=== PATIENT | female | born 1970 | race Caucasian/White ===

== ENCOUNTER 2023-02-08 01:06 | Emergency (ER) | payer MEDICAID ==
[2023-02-08] MEDS ORDERED: Ondansetron 4 MG/2 ML SDV IVPUSH ONE (01:25)
[2023-02-08] MEDS ORDERED: Ketorolac 30 MG/ML SDV IVPUSH ONE (01:25)
[2023-02-08] MEDS ORDERED: Sodium Chloride 0.9% 10 ML Syringe FLUSH PRN (01:25)
[2023-02-08] MEDS ORDERED: Sodium Chloride 0.9% 2.5 ML Syringe FLUSH PRN (01:25)
[2023-02-08] MEDS ORDERED: fentaNYL 50 MCG/ML SDV IVPUSH ONE ×2 (02:01→02:49)
[2023-02-08 02:02] LABS: CARBON DIOXIDE,CO2 23.1 mmol/L (21.0-32.0); POTASSIUM,K 4.4 mmol/L (3.5-5.1)
[2023-02-08] MEDS ORDERED: Acetaminophen 1,000 MG in Premix Bag 1 BAG IV ONE (03:10)
[2023-02-08] MEDS ORDERED: HYDROmorphone 1 MG/ML Syringe IVPUSH ONE ×2 (03:28→04:17)
== END 2023-02-08 05:00 | disposition home or self-care (01) ==
LOC: MW.ED 01:06
DX: N23 Unspecified renal colic (principal); Z88.5 Allergy status to narcotic agent; Z88.8 Allergy status to other drugs, medicaments and biological substances
CPT/HCPCS: 36415; 74176; 80053; 81001; 85025; 87086; 96365; 96375; 96376; 99284; J0131; J1170; J1885; J2405; J3010; J3490; 87088; 87186; 99283

== ENCOUNTER 2023-02-09 19:49 | Emergency (ER) | payer MEDICAID | END 2023-02-09 20:45 | disposition left against medical advice (07) | LOC: MW.ED 19:49 | DX: Z53.21 Procedure and treatment not carried out due to patient leaving prior to being seen by health care provider (principal) ==

== ENCOUNTER 2023-02-22 12:01 | Emergency (ER) | payer MEDICAID ==
[2023-02-22] MEDS ORDERED: Sodium Chloride 0.9% 10 ML Syringe FLUSH PRN (12:33)
[2023-02-22] MEDS ORDERED: Sodium Chloride 0.9% 2.5 ML Syringe FLUSH PRN (12:33)
[2023-02-22] MEDS ORDERED: HYDROmorphone 2 MG/ML Syringe IVPUSH ONE (12:34)
[2023-02-22] MEDS ORDERED: Sodium Chloride 0.9% 500 ML IV SCH (12:45)
[2023-02-22] MEDS ORDERED: Ondansetron 4 MG/2 ML SDV IVPUSH STA (13:46)
[2023-02-22] MEDS ORDERED: Piperacillin/Tazobactam 3.375 GM in Sodium Chloride 0.9% 100 ML IV ONE (15:07)
== END 2023-02-22 16:34 ==
LOC: MW.ED 12:01
DX: N20.0 Calculus of kidney (principal); N12 Tubulo-interstitial nephritis, not specified as acute or chronic; Z88.5 Allergy status to narcotic agent; Z88.6 Allergy status to analgesic agent; Z72.0 Tobacco use
CPT/HCPCS: 36415; 74176; 80053; 81001; 83605; 85025; 87040; 96365; 96375; 99285; J1170; J2405; J2543; J3490; J7040; 99284

== ENCOUNTER 2023-05-30 14:51 | Emergency (ER) | payer MEDICAID ==
[2023-05-30] MEDS ORDERED: oxyCODONE 5 MG Tab PO STA (16:50)
== END 2023-05-30 16:53 | disposition home or self-care (01) ==
LOC: MW.ED 14:51
DX: M25.512 Pain in left shoulder (principal); J45.909 Unspecified asthma, uncomplicated; Z88.5 Allergy status to narcotic agent; Z88.6 Allergy status to analgesic agent; X50.0XXA Overexertion from strenuous movement or load, initial encounter
CPT/HCPCS: 99283; A9270

== ENCOUNTER 2024-09-03 15:01 | Emergency (ER) | payer SELFPAY ==
[2024-09-03 16:04] LABS: BASOPHILS ABSOLUTE AUTO 0.08 K/uL (0.00-0.20); EOSINOPHILS PERCENT AUTO 2.5 % (0.0-6.0); HEMATOCRIT 45.9 % (37.0-47.0); HEMOGLOBIN 15.1 g/dL (12.0-16.0); IMMATURE GRAN ABSOLUTE AUTO 0.09 K/uL (0.00-0.05); IMMATURE GRAN PERCENT AUTO 1.1 % (0.0-0.4); LYMPHOCYTES ABSOLUTE AUTO 2.26 K/uL (1.00-4.80); LYMPHOCYTES PERCENT AUTO 28.4 % (24.0-44.0); MEAN CORPUSCULAR HEMOGLOBIN 32.6 pg (28.0-32.0); MEAN CORPUSCULAR HGB CONC 32.9 g/dL (32.0-36.0); MEAN CORPUSCULAR VOLUME 99.1 fL (83.0-99.0); MEAN PLATELET VOLUME 9.8 fL (9.4-12.3); MONOCYTES ABSOLUTE AUTO 1.35 K/uL (0.00-0.80); MONOCYTES PERCENT AUTO 16.9 % (0.0-8.0); NEUTROPHILS ABSOLUTE AUTO 3.99 K/uL (1.80-7.70); NEUTROPHILS PERCENT AUTO 50.1 % (41.0-71.0); PLATELET COUNT,PLT 237 K/uL (150-400); RED BLOOD CELL COUNT 4.63 M/uL (4.10-5.30); WHITE BLOOD CELL COUNT,WBC 7.97 K/uL (3.9-11.3)
[2024-09-03 16:32] LABS: A/G RATIO 0.8 (0.9-1.6); ALBUMIN 3.2 g/dL (3.4-5.0); BILIRUBIN TOTAL 0.3 mg/dL (0.2-1.0); CALCIUM 8.6 mg/dL (8.5-10.1); CARBON DIOXIDE,CO2 23.8 mmol/L (21.0-32.0); EST CRCL DRUG DOSING (CG) 45.66 mL/min; POTASSIUM,K 3.5 mmol/L (3.5-5.1); PROTEIN TOTAL,TP 7.3 g/dL (6.4-8.2)
[2024-09-03] MEDS: Nirmatrelvir/Ritonavir 300 MG/100 MG Dosepak PO SCH (17:23)
== END 2024-09-03 17:27 | disposition home or self-care (01) ==
LOC: MW.ED 15:01
DX: U07.1 COVID-19 (principal); F17.210 Nicotine dependence, cigarettes, uncomplicated; Z88.5 Allergy status to narcotic agent; Z88.6 Allergy status to analgesic agent; Z75.8 Other problems related to medical facilities and other health care
CPT/HCPCS: 36415; 71045; 80053; 85025; 87428; 93005; 99285; A9270

== ENCOUNTER 2024-09-19 19:45 | Emergency (ER) | payer SELFPAY ==
[2024-09-19] MEDS: Acetaminophen 500 MG Tab PO ONE (21:34)
== END 2024-09-19 22:23 | disposition home or self-care (01) ==
LOC: MW.ED 19:45
DX: M25.532 Pain in left wrist (principal); Z75.8 Other problems related to medical facilities and other health care; J45.909 Unspecified asthma, uncomplicated; Z88.5 Allergy status to narcotic agent
CPT/HCPCS: 73060; 73070; 73110; 99283; A9270

== ENCOUNTER 2024-11-09 02:24 | Emergency (ER) | payer MEDICAID ==
[2024-11-09] MEDS: Bupivacaine 0.5% 10 ML SDV INJECT ONE (02:53)
[2024-11-09] MEDS: Lidocaine 2% Viscous Solution 15 ML UD PO PRN (02:57)
[2024-11-09] MEDS: Benzocaine 20% Topical Spray UD MUCMEM ONE (02:57)
== END 2024-11-09 04:20 | disposition home or self-care (01) ==
LOC: MW.ED 02:24
DX: K08.89 Other specified disorders of teeth and supporting structures (principal); J45.909 Unspecified asthma, uncomplicated; F17.210 Nicotine dependence, cigarettes, uncomplicated; Z88.5 Allergy status to narcotic agent; Z88.8 Allergy status to other drugs, medicaments and biological substances
CPT/HCPCS: 64400; 99282; A9270; J0665

== ENCOUNTER 2024-12-17 06:24 | Emergency (ER) | payer MEDICAID ==
[2024-12-17] MEDS: Famotidine 20 MG Tab PO ONE (06:49)
[2024-12-17] MEDS: Acetaminophen 500 MG Tab PO ONE (06:49)
[2024-12-17] MEDS: Albuterol/Ipratropium 3.0-0.5 MG/3 ML Neb Soln NEB ONE (06:49)
[2024-12-17] MEDS: Ibuprofen 600 MG Tab PO ONE (06:49)
[2024-12-17] MEDS ORDERED: Azithromycin 500 MG Vial IV ONE (08:02)
[2024-12-17] MEDS ORDERED: Azithromycin 500 MG in Sodium Chloride 0.9% 250 ML IV ONE (08:05)
[2024-12-17] MEDS: Azithromycin 250 MG Tab PO ONE (08:09)
== END 2024-12-17 08:14 | disposition home or self-care (01) ==
LOC: MW.ED 06:24
DX: R05.9 Cough, unspecified (principal); M79.10 Myalgia, unspecified site; J45.909 Unspecified asthma, uncomplicated; Z88.5 Allergy status to narcotic agent; Z88.8 Allergy status to other drugs, medicaments and biological substances; F17.210 Nicotine dependence, cigarettes, uncomplicated
CPT/HCPCS: 71046; 87428; 99285; A9270; 99283; J7620-GY

== ENCOUNTER 2025-06-17 13:18 | Emergency (ER) | payer MEDICAID | END 2025-06-17 14:32 | LOC: MW.ED 13:18 | DX: F17.200 Nicotine dependence, unspecified, uncomplicated; Z88.0 Allergy status to penicillin; Z88.5 Allergy status to narcotic agent; Z88.8 Allergy status to other drugs, medicaments and biological substances | CPT/HCPCS: 82947; 99283 ==

== ENCOUNTER 2025-06-23 23:00 | Emergency (ER) | payer MEDICAID ==
[2025-06-23 23:24] LABS: BASOPHILS ABSOLUTE AUTO 0.09 K/uL (0.00-0.20); BASOPHILS PERCENT AUTO 0.8 % (0.0-1.0); EOSINOPHILS ABSOLUTE AUTO 0.70 K/uL (0.00-0.45); EOSINOPHILS PERCENT AUTO 6.3 % (0.0-6.0); IMMATURE GRAN ABSOLUTE AUTO 0.08 K/uL (0.00-0.05); IMMATURE GRAN PERCENT AUTO 0.7 % (0.0-0.4); LYMPHOCYTES ABSOLUTE AUTO 2.62 K/uL (1.00-4.80); LYMPHOCYTES PERCENT AUTO 23.7 % (24.0-44.0); MEAN PLATELET VOLUME 9.5 fL (9.4-12.3); MONOCYTES ABSOLUTE AUTO 1.35 K/uL (0.00-0.80); MONOCYTES PERCENT AUTO 12.2 % (0.0-8.0); NEUTROPHILS ABSOLUTE AUTO 6.20 K/uL (1.80-7.70); NEUTROPHILS PERCENT AUTO 56.3 % (41.0-71.0); NRBC ABSOLUTE 0.00 K/uL (0.00-0.02); NRBC PERCENT 0.0 /100WBC (0.0-0.2); PLATELET COUNT,PLT 254 K/uL (150-400); RED BLOOD CELL COUNT 4.21 M/uL (4.10-5.30); WHITE BLOOD CELL COUNT,WBC 11.04 K/uL (3.9-11.3)
[2025-06-23 23:44] LABS: A/G RATIO 0.9 (0.9-1.6); ALANINE AMINOTRANSFERASE,ALT 41.0 IU/L (14-63); ASPARTATE AMNIOTRANSFERASE,AST 26.0 IU/L (15-37); BILIRUBIN TOTAL 0.2 mg/dL (0.2-1.0); BLOOD UREA NITROGEN,BUN 14.0 mg/dL (7.0-18.0); CARBON DIOXIDE,CO2 24.1 mmol/L (21.0-32.0); CHLORIDE,CL 107.0 mmol/L (98-107); CREATININE 0.9 mg/dL (0.6-1.0); EST CRCL DRUG DOSING (CG) 52.67 mL/min; ETHANOL BLOOD MEDICAL 123.0 mg/dL; GLUCOSE RANDOM 112.0 mg/dL (74-106); POTASSIUM,K 3.7 mmol/L (3.5-5.1); PRO B-TYPE NATRIUR PEPT,BNPPRO 18.0 pg/mL (0-125); PROTEIN TOTAL,TP 6.9 g/dL (6.4-8.2); SODIUM,NA 144.0 mmol/L (136-145)
[2025-06-23 23:45] LABS: ESTIMATED GFR 75.0 mL/min (>60)
[2025-06-23] MEDS: Iopamidol 755 MG/ML 500 ML Multipack Bottle IVPUSH ONE (23:56)
[2025-06-24 00:55] LABS: APPEARANCE,URINE CLEAR; GLUCOSE,URINE NEGATIVE (NEGATIVE); OCCULT BLOOD,URINE TRACE-LYSED (NEGATIVE)
[2025-06-24 01:05] LABS: AMPHETAMINES SCREEN, URINE PRESUMPTIVE POSITIVE (CUTOFF=500); BUPRENORPHINE SCREEN,URINE NEGATIVE (CUTOFF=10); METHADONE SCREEN, URINE NEGATIVE (CUTOFF=200); METHAMPHETAMINES SCREEN, URINE PRESUMPTIVE POSITIVE (CUTOFF=500); OXYCODONE SCREEN,URINE NEGATIVE (CUT0FF=100); PCP SCREEN,URINE NEGATIVE (CUTOFF=25); THC SCREEN,URINE 20 NG/ML PRESUMPTIVE POSITIVE (CUTOFF=50)
[2025-06-24 01:19] LABS: EPITHELIAL CELLS,URINE OCCASIONAL (NONE-FEW)
== END 2025-06-24 01:52 | disposition home or self-care (01) ==
LOC: MW.ED 23:00
DX: F15.10 Other stimulant abuse, uncomplicated (principal); F12.10 Cannabis abuse, uncomplicated; F10.120 Alcohol abuse with intoxication, uncomplicated; J45.909 Unspecified asthma, uncomplicated; F17.210 Nicotine dependence, cigarettes, uncomplicated; Z88.0 Allergy status to penicillin; Z88.5 Allergy status to narcotic agent; Z88.8 Allergy status to other drugs, medicaments and biological substances; Z79.899 Other long term (current) drug therapy; Y90.9 Presence of alcohol in blood, level not specified
CPT/HCPCS: 36415; 71045; 71275; 74177; 80053; 80305; 80307; 81001; 83690; 83880; 84484; 85025; 93005; 99285; Q9967; 93010; 99284

== ENCOUNTER 2025-07-13 16:02 | Emergency (ER) | payer MEDICAID ==
[2025-07-13] MEDS ORDERED: Sodium Chloride 0.9% 10 ML Syringe FLUSH PRN (16:13)
[2025-07-13] MEDS ORDERED: Sodium Chloride 0.9% 2.5 ML Syringe FLUSH PRN (16:13)
[2025-07-13] MEDS: droPERidol 2.5 MG/ML SDV IVPUSH ONE (16:25)
[2025-07-13 16:33] LABS: BASOPHILS ABSOLUTE AUTO 0.07 K/uL (0.00-0.20); BASOPHILS PERCENT AUTO 0.7 % (0.0-1.0); EOSINOPHILS ABSOLUTE AUTO 0.48 K/uL (0.00-0.45); EOSINOPHILS PERCENT AUTO 4.9 % (0.0-6.0); IMMATURE GRAN ABSOLUTE AUTO 0.09 K/uL (0.00-0.05); IMMATURE GRAN PERCENT AUTO 0.9 % (0.0-0.4); LYMPHOCYTES ABSOLUTE AUTO 3.05 K/uL (1.00-4.80); LYMPHOCYTES PERCENT AUTO 30.8 % (24.0-44.0); MEAN PLATELET VOLUME 9.8 fL (9.4-12.3); MONOCYTES ABSOLUTE AUTO 0.84 K/uL (0.00-0.80); MONOCYTES PERCENT AUTO 8.5 % (0.0-8.0); NEUTROPHILS ABSOLUTE AUTO 5.36 K/uL (1.80-7.70); NEUTROPHILS PERCENT AUTO 54.2 % (41.0-71.0); NRBC ABSOLUTE 0.00 K/uL (0.00-0.02); NRBC PERCENT 0.0 /100WBC (0.0-0.2); PLATELET COUNT,PLT 291 K/uL (150-400); RED BLOOD CELL COUNT 4.41 M/uL (4.10-5.30); WHITE BLOOD CELL COUNT,WBC 9.89 K/uL (3.9-11.3)
[2025-07-13 16:34] LABS: APPEARANCE,URINE CLEAR; GLUCOSE,URINE NEGATIVE (NEGATIVE); OCCULT BLOOD,URINE TRACE-INTACT (NEGATIVE)
[2025-07-13 16:42] LABS: EPITHELIAL CELLS,URINE FEW (NONE-FEW)
[2025-07-13 16:54] LABS: A/G RATIO 0.8 (0.9-1.6); ALANINE AMINOTRANSFERASE,ALT 31.0 IU/L (14-63); ASPARTATE AMNIOTRANSFERASE,AST 22.0 IU/L (15-37); BILIRUBIN TOTAL 0.2 mg/dL (0.2-1.0); BLOOD UREA NITROGEN,BUN 14.0 mg/dL (7.0-18.0); CARBON DIOXIDE,CO2 24.4 mmol/L (21.0-32.0); CHLORIDE,CL 108.0 mmol/L (98-107); CREATININE 0.8 mg/dL (0.6-1.0); EST CRCL DRUG DOSING (CG) 59.25 mL/min; GLUCOSE RANDOM 99.0 mg/dL (74-106); POTASSIUM,K 3.9 mmol/L (3.5-5.1); PROTEIN TOTAL,TP 6.9 g/dL (6.4-8.2); SODIUM,NA 142.0 mmol/L (136-145)
[2025-07-13 17:04] LABS: ESTIMATED GFR 86.0 mL/min (>60)
== END 2025-07-13 17:49 | disposition home or self-care (01) ==
LOC: MW.ED 16:02
DX: R10.9 Unspecified abdominal pain (principal); J45.909 Unspecified asthma, uncomplicated; Z88.0 Allergy status to penicillin; Z88.8 Allergy status to other drugs, medicaments and biological substances; Z79.899 Other long term (current) drug therapy
CPT/HCPCS: 36415; 74176; 80053; 81001; 83605; 83690; 85025; 96361; 96374; 96375; 99284; J1790; J7030; 99283; J1171

== ENCOUNTER 2025-09-18 05:14 | Emergency (ER) | payer MEDICAID ==
[2025-09-18] MEDS ORDERED: Sodium Chloride 0.9% 10 ML Syringe FLUSH PRN (05:25)
[2025-09-18] MEDS ORDERED: Sodium Chloride 0.9% 2.5 ML Syringe FLUSH PRN (05:25)
[2025-09-18] MEDS: cefTRIAXone 1 GM in Water For Injection, Sterile 10 ML IVPUSH ONE (05:41)
[2025-09-18] MEDS: metroNIDAZOLE/Normal Saline 500 MG in Premix Bag 1 BAG IV ONE (05:41)
[2025-09-18 05:42] LABS: BASOPHILS ABSOLUTE AUTO 0.08 K/uL (0.00-0.20); BASOPHILS PERCENT AUTO 0.7 % (0.0-1.0); EOSINOPHILS ABSOLUTE AUTO 0.29 K/uL (0.00-0.45); EOSINOPHILS PERCENT AUTO 2.4 % (0.0-6.0); IMMATURE GRAN ABSOLUTE AUTO 0.07 K/uL (0.00-0.05); IMMATURE GRAN PERCENT AUTO 0.6 % (0.0-0.4); LYMPHOCYTES ABSOLUTE AUTO 3.50 K/uL (1.00-4.80); LYMPHOCYTES PERCENT AUTO 29.2 % (24.0-44.0); MEAN PLATELET VOLUME 9.6 fL (9.4-12.3); MONOCYTES ABSOLUTE AUTO 1.05 K/uL (0.00-0.80); MONOCYTES PERCENT AUTO 8.8 % (0.0-8.0); NEUTROPHILS ABSOLUTE AUTO 6.98 K/uL (1.80-7.70); NEUTROPHILS PERCENT AUTO 58.3 % (41.0-71.0); NRBC ABSOLUTE 0.00 K/uL (0.00-0.02); NRBC PERCENT 0.0 /100WBC (0.0-0.2); PLATELET COUNT,PLT 267 K/uL (150-400); RED BLOOD CELL COUNT 4.70 M/uL (4.10-5.30); WHITE BLOOD CELL COUNT,WBC 11.97 K/uL (3.9-11.3)
[2025-09-18] MEDS: Ondansetron 4 MG/2 ML SDV IVPUSH ONE (05:47)
[2025-09-18 06:02] LABS: BLOOD UREA NITROGEN,BUN 10 mg/dL (7.0-18.0); CARBON DIOXIDE,CO2 30.2 mmol/L (21.0-32.0); CHLORIDE,CL 103 mmol/L (98-107); CREATININE 0.9 mg/dL (0.6-1.0); GLUCOSE RANDOM 113 mg/dL (74-106); POTASSIUM,K 4.0 mmol/L (3.5-5.1); SODIUM,NA 139 mmol/L (136-145)
[2025-09-18 06:04] LABS: ESTIMATED GFR 75 mL/min (>60)
[2025-09-18 06:11] LABS: LACTIC ACID 1.3 mmol/L (0.4-2.0)
[2025-09-18] MEDS ORDERED: Naloxone 0.4 MG/ML SDV IVPUSH PRN (07:41)
[2025-09-18] MEDS: fentaNYL 50 MCG/ML SDV IVPUSH ONE ×2 (07:49→10:42)
[2025-09-18] MEDS: Iopamidol 755 MG/ML 500 ML Multipack Bottle IVPUSH STA (08:10)
[2025-09-18] MEDS: Clindamycin Phosphate in D5W 900 MG in Premix Bag 1 BAG IV ONE (09:13)
== END 2025-09-18 10:50 ==
LOC: MW.ED 05:14
DX: S61.452A Open bite of left hand, initial encounter (principal); F17.210 Nicotine dependence, cigarettes, uncomplicated; Z88.0 Allergy status to penicillin; Z88.5 Allergy status to narcotic agent; W55.01XA Bitten by cat, initial encounter; Y93.89 Activity, other specified
CPT/HCPCS: 36415; 73130-26-LT; 73130-LT; 73201-26-LT; 73201-LT; 80048; 83605; 85025; 86140; 87040; 96365; 96367; 96375; 96376; 99285-25; J0696; J0736; J1171; J1836; J2405; J3010; J7030; Q9967